=== PATIENT | female | born 1965 | race African-American/Black ===

== ENCOUNTER 2016-12-31 18:51 | Emergency (ER) | payer BC ==
[~2016-12-31] VITALS: Ht 167.6 cm; Wt 118.8 kg
[2016-12-31 20:21] VITALS: BP 167/93
[2016-12-31] MEDS ORDERED: TRAM-29 PO (21:01)
--- NOTE | 2016-12-31 21:01 | PHYS DOC ---
Past Medical History Past Medical History: Diabetes-Type II, Hypertension Past Surgical History: No Surgical History Additional Information: Nonsmoker Alcohol Use: None Drug Use: None Adult General Chief Complaint Chief Complaint: LOWER EXT PAIN HPI HPI Patient is a 51 year old female who presents with atraumatic right knee pain for one week. She is ambulatory, however with pain. She denies any numbness, tingling, or swelling in the knee. She denies known history of arthritis or gout. She has been taking ibuprofen for pain. [place] [facility] [place] Systems Review of Systems Constitutional: Denies fever or chills. [] Musculoskeletal: Denies back pain. Reports right knee pain. Integument: Denies rash or skin lesions. [] Neurologic: Denies focal weakness or sensory changes. [] Allergies Allergies Allergies Coded Allergies Type Severity Reaction Last Updated Verified No Known Drug Allergies 12/31/16 No Physical Exam Physical Exam Constitutional: Well developed, well nourished, no acute distress, non-toxic appearance. [] HENT: Normocephalic, atraumatic, oropharynx moist. [] Eyes: PERRLA, EOMI, conjunctiva normal, no discharge. [] Skin: Warm, dry, no erythema, no rash. There is no laceration, abrasion, ecchymosis, or other external sign of injury. There is no erythema or warmth to suggest infection. Extremities: Diffuse right knee tenderness, ROM intact, no edema. 2+ DP and PT pulses. Less than 2 second capillary refill in the toes. Light touch sensation intact in the toes. There is no tenderness of the foot, ankle, calf, thigh, or hip. FROM of ankle, knee, and hip. Neurologic: Alert and oriented X 3, normal motor function, normal sensory function, no focal deficits noted. [] Psychologic: Affect normal, judgement normal, mood normal. [] Current Patient Data Vital Signs Vital Signs Date Time Temp Pulse Resp B/P Pulse Ox O2 Delivery O2 Flow Rate FiO2 12/31/16 20:21 98.1 95 16 98 Room Air 98.1 EKG EKG [] Radiology/Procedures Radiology/Procedures [] Course & Med Decision Making Course & Med Decision Making Pertinent Labs and Imaging studies reviewed. (See chart for details) Patient presents with atraumatic right knee pain for one week. We discussed the risks and benefits of x-ray. She declines x-ray at this time. She is discharged home with for the knee. She is given prescription for Ultram. She is to follow- up with orthopedics if her pain continues. Return precautions were discussed. She verbalizes understanding and agrees with plan. Maritaon Disclaimer Nelli Disclaimer This electronic medical record was generated, in whole or in part, using a voice recognition dictation system. Departure Departure Impression: Primary Impression: Knee pain, right Disposition: HOME, SELF-CARE Condition: STABLE Referrals: ARTURO DOLAN II, MD Patient Instructions: Knee Pain, [id number], Knee Wraps (Elastic Bandage) and RICE Additional Instructions: You were seen for pain in your knee. Please wear the provided Ozzy wrap as needed. Please take the prescribed pain medication as directed. Do not drive or operate heavy machinery while taking pain medication. Please follow-up with the orthopedic doctor listed below if your pain continues. Return to emergency department if you have any new or concerning symptoms. Scripts Tramadol Hcl (Ultram)50 Mg [id number] Mg PO Q6H PRN PAIN #20 TAB Prov:ANTONIETA SOLIS 12/31/16 Problem Qualifiers Primary Impression: Knee pain, right Chronicity: acute Qualified Code: M25.561 - Pain in right knee ANTONIETA SOLIS Dec 31, 2016 21:01
== END 2016-12-31 21:06 | disposition home or self-care (01) ==
LOC: ER 18:51
DX: M25.561 Pain in right knee (principal); I10 Essential (primary) hypertension; E11.9 Type 2 diabetes mellitus without complications
CPT/HCPCS: 99282

== ENCOUNTER 2017-05-23 02:12 | Emergency (ER) | payer BC ==
[~2017-05-23] VITALS: Ht 177.8 cm; Wt 118.8 kg
[~2017-05-23 02:12] MED LIST: TRAM-48 PO
[2017-05-23 02:24] VITALS: BP 173/89
[2017-05-23] MEDS ORDERED: HYDROCORTISONE 1% TOPICAL OINTMENT 30GM TUBE. TP PRN (03:00)
[2017-05-23] MEDS ORDERED: CETIRIZINE HCL 10 MG TABLET. PO SCH (03:30)
--- NOTE | 2017-05-23 19:18 | PHYS DOC ---
Past Medical History Past Medical History: Diabetes-Type II, High Cholesterol, Hypertension Past Surgical History: No Surgical History Alcohol Use: None Drug Use: None Adult General Chief Complaint Chief Complaint: INSECT BITE HPI HPI Patient is a 51 year old female who presents with rash to L leg only. Pt states rash started on Saturday and has become worse. Pt states rash is very very itchy. Pt denies pain but is causes uncomfortable feeling when rubs on clothing. Rash is only on front of L leg above the knee. She denies any exposure to weeds, poison gerri. No fever or chills and no rash elsewhere on body. Review of Systems Review of Systems Constitutional: Denies fever or chills Eyes: Denies change in visual acuity, redness, or eye pain HENT: Denies nasal congestion or sore throat Respiratory: Denies cough or shortness of breath Cardiovascular: No additional information not addressed in HPI GI: Denies abdominal pain, nausea, vomiting, bloody stools or diarrhea : Denies dysuria or hematuria Musculoskeletal: Denies back pain or joint pain Integument: rash on L upper leg that itches,with blisters Neurologic: Denies headache, focal weakness or sensory changes Endocrine: Denies polyuria or polydipsia Current Medications Current Medications Current Medications Medications (Trade) Dose Ordered Sig/Oscar Start Time Stop Time Status Last Admin Dose Admin Cetirizine HCl (ZyrTEC) 10 mg DAILY 05/23/17 03:30 05/23/17 03:30 DC 05/23/17 03:08 10 MG Hydrocortisone (Cortaid) 1 akanksha PRN TID PRN 05/23/17 03:00 05/23/17 03:19 DC 05/23/17 03:08 1 AKANKSHA Allergies Allergies Allergies Coded Allergies Type Severity Reaction Last Updated Verified No Known Drug Allergies 12/31/16 No Physical Exam Physical Exam Constitutional: Well developed, well nourished, no acute distress, non-toxic appearance. HENT: , oropharynx moist, no oral exudates, nose normal. Eyes: PERRLA, conjunctiva normal, no discharge. Neck: Normal range of motion, no tenderness, supple, no stridor. Cardiovascular:Heart rate regular rhythm, no murmur Lungs & Thorax: Bilateral breath sounds clear to auscultation Skin: Rash only on anterior L thigh irregular patches and linear areas with erythema base and vesicles, nontender, no cellulitis, no drainage from wounds, no petechia, no purpura Extremities: No tenderness, no cyanosis, no clubbing, ROM intact, no edema. Neurologic: Alert and oriented X 3, normal motor function, normal sensory function, no focal deficits noted. Psychologic: Affect normal, judgement normal, mood normal. Current Patient Data Vital Signs Vital Signs Date Time Temp Pulse Resp B/P (MAP) Pulse Ox O2 Delivery O2 Flow Rate FiO2 05/23/17 02:24 98.2 126 16 96 Room Air 98.2 05/23/17 02:22 173/89 (117) EKG EKG [] Radiology/Procedures Radiology/Procedures [] Impressions: IMpression--Contact dermatitis possible poison gerri Course & Med Decision Making Course & Med Decision Making Rash appears consistent with a contact dermatitis and not likely herpetic given non dermatonal distribution and itchy more than painful Pt is a diabetic and concern for elevating BS if placed on oral steroid, discussed with pt so will try topical steroid, zyrtec and benedryl with close follow up PCP and discussed with pt signs and symptoms of worsening condition or signs of infection and when to return to ER if worse [] Dragon Disclaimer Dragon Disclaimer This electronic medical record was generated, in whole or in part, using a voice recognition dictation system. Departure Departure Impression: Primary Impression: Poison gerri Additional Impression: Contact dermatitis Disposition: 01 HOME, SELF-CARE Condition: STABLE Patient Instructions: Poison Gerri, [id number], Contact Dermatitis, Easy-to- Read Additional Instructions: use Zyrtec and hydrocortizone cream on rash Can use Benedryl for itching but causes sedation and no driving or working on benedryl follow up with your primary care physician in 1-2 days for wound check Return if worse or change in symptoms Problem Qualifiers JOSE LUIS OKEEFE MD May 23, 2017 19:18
== END 2017-05-23 03:13 | disposition home or self-care (01) ==
LOC: ER 02:12
DX: L23.7 Allergic contact dermatitis due to plants, except food (principal); E11.9 Type 2 diabetes mellitus without complications; E78.00 Pure hypercholesterolemia, unspecified; I10 Essential (primary) hypertension
CPT/HCPCS: 99283